=== PATIENT | female | born 2000 | race Two or more races ===

== ENCOUNTER 2022-09-06 16:55 | Emergency (ER) | payer OTHER ==
[~2022-09-06] VITALS: Ht 170.2 cm; Wt 74.8 kg
[2022-09-06 17:11] VITALS: BP 111/75
--- NOTE | 2022-09-06 17:11 | NUR ---
c/o throat pain x 2 days 8/10 ps, last tylenol 4hrs [employer]
[2022-09-06] MEDS ORDERED: KETOROLAC TROMETHAMINE INJ 30 MG/ML VIAL ONE (17:18)
[2022-09-06] MEDS ORDERED: DEXAMETHASONE SOD PHOSPHATE 10 MG/ML VIAL ONE (17:18)
[2022-09-06] MEDS ORDERED: IBUP-1955 PO (17:23)
[2022-09-06] MEDS ORDERED: AMOX500T2 PO (17:23)
--- NOTE | 2022-09-06 17:28 | NUR ---
Patient discharged to home in stable condition. Written and verbal after care instructions given. Patient verbalizes understanding of instruction.
[2022-09-06] MEDS ORDERED: DEXAMETHASONE SOD PHOSPHATE 10 MG/ML VIAL IM ONE (17:30)
[2022-09-06] MEDS ORDERED: KETOROLAC TROMETHAMINE INJ 60 MG/2 ML VIAL IM ONE (17:30)
== END 2022-09-06 17:28 | disposition home or self-care (01) ==
LOC: ER 16:57
DX: J02.0 Streptococcal pharyngitis (principal)
CPT/HCPCS: 99284; 96372 ×2; 87880; J1100; J1885; 86403-TC

== ENCOUNTER 2023-01-12 10:59 | Emergency (ER) | payer OTHER ==
[~2023-01-12] VITALS: Ht 175.3 cm; Wt 78.9 kg
[~2023-01-12 10:59] MED LIST: AMOX500T2 PO; IBUP-1955 PO
[2023-01-12 11:43] VITALS: BP 113/67; TEMP 98.1; O2SAT 100
[2023-01-12] MEDS ORDERED: IBUP-1955 PO (12:27)
[2023-01-12] MEDS ORDERED: IBUPROFEN 600 MG TABLET ONE (12:27)
[2023-01-12] MEDS ORDERED: IBUPROFEN 600 MG TABLET PO ONE (12:30)
== END 2023-01-12 13:06 | disposition home or self-care (01) ==
LOC: ER 11:05
DX: S93.402A Sprain of unspecified ligament of left ankle, initial encounter (principal); X50.1XXA Overexertion from prolonged static or awkward postures, initial encounter; Y93.21 Activity, ice skating; Y92.89 Other specified places as the place of occurrence of the external cause; Y99.8 Other external cause status
CPT/HCPCS: 73610-TC